=== PATIENT | female | born 1995 | race Caucasian/White ===

== ENCOUNTER 2017-10-31 19:54 | Emergency (ER) | payer MEDICAID ==
[~2017-10-31] VITALS: Ht 152.4 cm; Wt 56.8 kg
[2017-10-31 21:01] LABS: URINE HCG NEGATIVE (NEG)
[2017-10-31 21:11] LABS: CLARITY,URINE SLIGHTLY CLOUDY (Clear); COLOR,URINE YELLOW (Yellow); GLUCOSE, URINE NEGATIVE (Neg); KETONES,URINE >=80 mg/dl (Neg); LEUKOCYTE ESTERASE ,URINE NEGATIVE (Neg); NITRITES, URINE NEGATIVE (Neg); OCCULT BLOOD,URINE MODERATE (Neg); PROTEIN,URINE TRACE mg/dl (Neg); UROBILINOGEN,URINE 0.2 E.U/dL (0.2-1.0)
[2017-10-31 21:12] LABS: UA COLLECTION TYPE CLN CATCH MIDSTREAM
[2017-10-31 21:17] LABS: AMORPHOUS URATES 3+; MUCUS STRANDS MANY /LPF (Neg)
[2017-10-31 21:18] LABS: BACTERIA,URINE 1+ /HPF (Neg); SQUAMOUS EPITHELIAL CELL,UR MANY /LPF (FEW); WBC,URINE 0-4 /HPF (0-4)
[2017-10-31 21:19] VITALS: BP 104/72
[2017-10-31 21:22] LABS: BASOPHILS % (AUTO) 0.4 % (0-1); EOSINOPHILS % (AUTO) 0.1 % (0-6); HEMATOCRIT 42.9 % (35.0-45.0); HEMOGLOBIN 14.9 g/dl (12.0-16.0); LYMPHOCYTES # (AUTO) 0.8 X10'3 (1.1-4.8); LYMPHOCYTES % (AUTO) 6.3 % (21-51); MEAN CORPUSCULAR HEMOGLOBIN 31.8 PG (27.0-31.0); MEAN CORPUSCULAR HGB CONC 34.8 % (33.0-36.5); MEAN CORPUSCULAR VOLUME 91.6 FL (78-98); MEAN PLATELET VOLUME 9.6 FL (7.4-10.4); MONOCYTES # (AUTO) 0.3 X10'3 (0-0.9); MONOCYTES % (AUTO) 2.4 % (2-12); NEUTROPHILS # (AUTO) 12.1 X10'3 (1.8-7.7); NEUTROPHILS % (AUTO) 90.8 % (42-75); PLATELET COUNT 173 X10'3 (140-440); RED BLOOD COUNT 4.68 X10'6 (4.20-5.60); RED CELL DISTRIBUTION WIDTH 12.5 % (11.5-14.5); WHITE BLOOD COUNT 13.3 X10'3 (4.5-11.0)
[2017-10-31] MEDS ORDERED: ondansetron/PF 4mg/2ml inj IV ONE (21:25)
[2017-10-31] MEDS ORDERED: normal saline 1000ML IV soln IVB ONE (21:25)
[2017-10-31] MEDS ORDERED: ketorolac trometh. 30mg/ml inj. IV ONE (21:25)
[2017-10-31 21:33] LABS: PROTHROMBIN TIME 9.9 SECONDS (9.0-12.0)
[2017-10-31] MEDS ORDERED: ondansetron 4mg rapidly disintigrating tab PO ONE (21:35)
[2017-10-31 21:39] LABS: ALANINE AMINOTRANSFERASE 39 U/L (12-78); ALBUMIN 4.5 G/DL (3.4-5.0); ALBUMIN/GLOBULIN RATIO 1.2 (1.1-1.5); ALKALINE PHOSPHATASE 65 IU/L (46-116); ANION GAP 12 (8-16); ASPARTATE AMINO TRANSFERASE 35 U/L (10-37); BILIRUBIN,TOTAL 0.5 MG/DL (0.1-1.0); BLOOD UREA NITROGEN 6 MG/DL (7-18); BUN/CREATININE RATIO 8.1 (6.6-38.0); CALCIUM 9.2 MG/DL (8.5-10.1); CHLORIDE 104 MMOL/L (99-107); CREATININE 0.74 MG/DL (0.40-0.90); GLUCOSE 108 MG/DL (70-104); LIPASE 76 U/L (73-393); POTASSIUM 3.5 MMOL/L (3.5-5.1); SODIUM 140 MMOL/L (135-145); TOTAL CARBON DIOXIDE 24.4 MMOL/L (24-32); TOTAL PROTEIN 8.3 G/DL (6.4-8.2); eGFR > 90 ML/MIN
[2017-10-31] MEDS ORDERED: ONDA4TAB9 SL (21:47)
[2017-10-31] MEDS ORDERED: IBUP-1984 PO (21:48)
== END 2017-10-31 22:17 | disposition home or self-care (01) ==
LOC: ER 19:55
DX: K52.9 Noninfective gastroenteritis and colitis, unspecified (principal)
CPT/HCPCS: 36415; 80053; 81001; 81025; 83690; 85025; 85610; 99284

== ENCOUNTER 2017-11-28 19:33 | Emergency (ER) | payer MEDICAID ==
[~2017-11-28] VITALS: Ht 165.1 cm; Wt 62.0 kg
[~2017-11-28 19:33] MED LIST: IBUP-1984 PO
[2017-11-28] MEDS ORDERED: normal saline 1000ML IV soln IVB ONE (19:45)
[2017-11-28] MEDS ORDERED: ondansetron/PF 4mg/2ml inj IV ONE (19:45)
[2017-11-28] MEDS ORDERED: LORazepam 2 mg/ml vial IV ONE ×2 (19:50→20:55)
[2017-11-28 20:00] LABS: BASOPHILS % (AUTO) 0.4 % (0-1); EOSINOPHILS % (AUTO) 0.3 % (0-6); HEMATOCRIT 38.7 % (35.0-45.0); HEMOGLOBIN 13.3 g/dl (12.0-16.0); LYMPHOCYTES # (AUTO) 1.1 X10'3 (1.1-4.8); LYMPHOCYTES % (AUTO) 12.8 % (21-51); MEAN CORPUSCULAR HEMOGLOBIN 31.9 PG (27.0-31.0); MEAN CORPUSCULAR HGB CONC 34.5 % (33.0-36.5); MEAN CORPUSCULAR VOLUME 92.7 FL (78-98); MEAN PLATELET VOLUME 9.2 FL (7.4-10.4); MONOCYTES # (AUTO) 0.3 X10'3 (0-0.9); MONOCYTES % (AUTO) 3.4 % (2-12); NEUTROPHILS # (AUTO) 7.2 X10'3 (1.8-7.7); NEUTROPHILS % (AUTO) 83.1 % (42-75); PLATELET COUNT 214 X10'3 (140-440); RED BLOOD COUNT 4.17 X10'6 (4.20-5.60); WHITE BLOOD COUNT 8.7 X10'3 (4.5-11.0)
[2017-11-28] MEDS ORDERED: proCHLORperazine 10 MG/2 ml inj IV ONE (20:10)
[2017-11-28] MEDS ORDERED: famotidine/PF 10 mg/ml inj IV ONE (20:10)
[2017-11-28 20:13] LABS: ALANINE AMINOTRANSFERASE 25 U/L (12-78); ALBUMIN/GLOBULIN RATIO 1.2 (1.1-1.5); ALKALINE PHOSPHATASE 56 IU/L (46-116); ANION GAP 13 (8-16); ASPARTATE AMINO TRANSFERASE 20 U/L (10-37); BILIRUBIN,TOTAL 0.4 MG/DL (0.1-1.0); CHLORIDE 105 MMOL/L (99-107); CREATININE 0.67 MG/DL (0.40-0.90); GLUCOSE 118 MG/DL (70-104); POTASSIUM 3.5 MMOL/L (3.5-5.1); SODIUM 140 MMOL/L (135-145); TOTAL CARBON DIOXIDE 22.5 MMOL/L (24-32); TOTAL PROTEIN 7.4 G/DL (6.4-8.2); eGFR > 90 ML/MIN
[2017-11-28 20:26] LABS: BLOOD UREA NITROGEN 7 MG/DL (7-18); BUN/CREATININE RATIO 10.4 (6.6-38.0)
[2017-11-28] MEDS ORDERED: ONDA4TAB9 SL (20:40)
[2017-11-28 21:42] VITALS: BP 121/72
== END 2017-11-28 21:43 | disposition home or self-care (01) ==
LOC: ER 19:33
DX: F11.23 Opioid dependence with withdrawal (principal); R11.2 Nausea with vomiting, unspecified; E86.0 Dehydration; Z79.899 Other long term (current) drug therapy
CPT/HCPCS: 36415; 80053; 85025; 96361; 96374; 96375; 96376; 99284; J0780; J2060; J2405; J3490; J7030

== ENCOUNTER 2018-03-05 21:37 | Emergency (ER) | payer MEDICAID ==
[~2018-03-05] VITALS: Ht 165.1 cm; Wt 65.0 kg
[2018-03-05 21:53] VITALS: BP 112/65
== END 2018-03-05 22:59 | disposition left against medical advice (07) ==
LOC: ER 21:37
DX: J02.9 Acute pharyngitis, unspecified (principal); Z53.21 Procedure and treatment not carried out due to patient leaving prior to being seen by health care provider

== ENCOUNTER 2018-03-07 23:17 | Emergency (ER) | payer MEDICAID ==
[~2018-03-07] VITALS: Ht 162.6 cm; Wt 52.5 kg
[2018-03-07 23:20] VITALS: BP 107/57
--- NOTE | 2018-03-08 00:10 | NUR ---
pt states, sore throat x 1 week
== END 2018-03-08 01:02 | disposition home or self-care (01) ==
LOC: ER 23:17
DX: J02.9 Acute pharyngitis, unspecified (principal)
CPT/HCPCS: 99281